=== PATIENT | male | born 1995 | race Caucasian/White ===

== ENCOUNTER 2020-05-20 12:10 | Outpatient (CLI) | payer BC, SELFPAY ==
[2020-05-20 13:37] LABS: SARS-CoV-2 Ag Negative (Negative)
== END 2020-05-20 12:11 | disposition home or self-care (01) ==
PROVIDERS: PCP Internal Medicine; Visit Provider Internal Medicine
DX: R50.9 Fever, unspecified (principal); Z20.828 Contact with and (suspected) exposure to other viral communicable diseases
CPT/HCPCS: 87426

== ENCOUNTER 2020-07-13 10:30 | Emergency (ER) | payer BC, OTHER, SELFPAY ==
[2020-07-13 10:35] VITALS: BP 132/80; PULSE 88; RESP 16; TEMP 36.8; O2SAT 100
--- NOTE | 2020-07-13 10:55 | ED.URI ---
HPI - URI/Sore Throat General Chief Complaint: Upper Respiratory Infection Stated Complaint: throat pain Source: patient Mode of arrival: ambulatory Limitations: no limitations History of Present Illness HPI Narrative: This is a 25-year-old gentleman presents with sore throat with a tender submandibular glands with no fevers symptoms have been going on for approximately 2 weeks and progressively worsened over the last 1 to 2 days. Patient denies any fever or chills but has a sore throat pain with swallowing with no shortness of breath no nausea vomiting no abdominal pain. Patient does have some sinus congestion with no ear pressure no frontal sinus pressure. MD elicited complaint: sore throat and nasal congestion Onset (ago): day(s) Consistency: constant Severity: moderate Exacerbating factors: swallowing Associated symptoms: voice changes, nasal congestion and sore throat Related Data Allergies Allergy/AdvReac Type Severity Reaction Status Date / Time No Known Allergies Allergy Unverified 06/07/17 22:20 Review of Systems Review of Systems: All systems reviewed & are unremarkable except as noted in HPI and below PMFSH Past Medical History Medical History Patient denies medical problems Exam Const: General: no acute distress and alert Orientation/consciousness: patient oriented x3 HENMT: Head: normal to inspection Other: bilateral tonsillar enlargement and erythema with bilateral submandibular gland inflammation and tenderness with palpation Eyes: Conjunctivae: conjunctivae normal Pupils: Equal, round and reactive pupils present Neck: Neck: normal visual inspection Chest: Chest palpation & inspection: normal inspection of the chest Resp: Effort & Inspection: normal respiratory effort Cardio: Rate: regular rate Rhythm: regular rhythm GI: GI Palp: Yes Soft to palpation Back/Spine/Pelvis: Back: no CVA tenderness Skin: General skin exam: normal color Rashes: no rashes Extrem: General: normal to inspection and no pedal edema Psych: Mental Status: mental status grossly normal Course Course Emergency Course: patient with sore throat patient has negative strep, and will send in an antibiotic to patient's pharmacy MDM - URI/Sore Throat Lab Data Labs: Lab Results 07/13/20 Range/Units 10:43 Grp A Beta Strep Ag Pending Critical Care Time Critical Care Time Critical Care Time: No Discharge Plan Discharge Clinical Impression: Pharyngitis Qualifiers: Pharyngitis/tonsillitis etiology: other specified organisms Qualified Code(s): J02.8 - Acute pharyngitis due to other specified organisms Patient Disposition: Home, Self-Care Condition: Stable Instructions: Antibiotic Form, Pharyngitis (ED) Additional Instructions: take medicine as prescribed, can use Tylenol or Motrin for sore throat with a warm saltwater gargle, and follow-up with primary care physician if symptoms persist or worsen. Prescriptions: New amoxicillin-pot clavulanate [Augmentin] 875-125 mg tablet 1 tablet PO Q12H Qty: 20 RF: 0 Follow-up/Referrals: Severino Barkley MD [Primary Care Provider] - Time of Disposition: 11:09
[2020-07-13 11:15] VITALS: RESP 20
== END 2020-07-13 11:15 | disposition home or self-care (01) ==
PROVIDERS: Emergency Provider Emergency Medicine; PCP Internal Medicine
DX: J02.8 Acute pharyngitis due to other specified organisms (principal)
CPT/HCPCS: 87081; 87880; 99283

== ENCOUNTER 2021-03-27 00:45 | Emergency (ER) | payer BC, OTHER, SELFPAY ==
--- NOTE | ~2021-03-27 | CT_ITS ---
EXAMINATION: CT soft tissue neck w con DATE: 03/27/2021 02:18 INDICATION: Peritonsillar abscess. TECHNIQUE: Computed tomography (CT) of the neck was performed with 75 mL Omnipaque-350 intravenous co ntrast. Automated exposure control and iterative reconstruction technique were employed. The dose-bandar gth product was 481.34 mGy-cm. COMPARISON: None FINDINGS: The adenoids and palatine tonsils are enlarged. There are no pathologically enlarged lymph nodes. There is an aberrant right subclavian artery. The cervical carotid arteries are normal. The pa ranasal sinuses are clear. The mastoid air cells are normal. There is mild cervical spondylosis. IMPRESSION: 1. Enlarged adenoids and palatine tonsils, consistent with inflammation. No abscess. Reviewed, dictated and finalized at location A. IMPRESSION: 1. Enlarged adenoids and palatine tonsils, consistent with inflammation. No abs cess.
[2021-03-27 00:45] VITALS: BP 133/86; PULSE 75; RESP 20; TEMP 37.2; O2SAT 99
--- NOTE | 2021-03-27 00:58 | ED.GENADULT ---
HPI - General Adult General Chief complaint: Upper Respiratory Infection Stated complaint: throut Source: patient Mode of arrival: ambulatory Limitations: no limitations History of Present Illness HPI narrative: Ta is a 25M with a PMH of tonsilitis and tobacco abuse that presented to the ED with a worsening sore throat for 3-4 days. It hurts when he swallows and he has tender lymph nodes. He denies any fevers, chills, N/V, CP or headache. Related Data Allergies Allergy/AdvReac Type Severity Reaction Status Date / Time No Known Allergies Allergy Unverified 06/07/17 22:20 Review of Systems Constitutional: Constitutional: Reports no additional constitutional complaints Eyes: Eyes: Reports no additional eye complaints ENT: Reports as per HPI Cardiovascular: Cardiovascular: Reports no additional cardiovascular complaints Respiratory: Respiratory: Reports no additional respiratory complaints Gastrointestinal: Gastrointestinal: Reports no additional gastrointestinal complaints Genitourinary: Genitourinary: Reports no additional male genitourinary complaints Musculoskeletal: Musculoskeletal: Reports no additional musculoskeletal complaints Integumentary/Breasts: Skin/Breast: Reports system reviewed and no additional complaints, except as docu Neurologic: Reports system reviewed and no additional complaints, except as documented Psychiatric: Psychiatric: Reports no additional psychiatric complaints Endocrine: Endocrine: Reports no additional endocrine complaints Hematologic/Lymphatic: Hematologic/Lymphatic: Reports no additional hematologic/lymphatic complaints Allergic/Immunologic: Allergic/Immunologic: Reports no additional allergic/immunologic complaints [facility] Past Medical History Medical History Patient denies medical problems Exam Const: General: no acute distress and alert Orientation/consciousness: patient oriented x3 Limitations: No altered mental status HENMT: Head: normal to inspection Other: Enlarged tonsils with the left being worse than the right Eyes: Conjunctivae: conjunctivae normal Pupils: Equal, round and reactive pupils present Neck: Other: Sub mandibular lymphadenopathy on the left Chest: Chest palpation & inspection: normal inspection of the chest Resp: Effort & Inspection: normal respiratory effort Auscultation: clear to auscultation bilaterally Cardio: Rate: regular rate Rhythm: regular rhythm GI: Inspection: non-distended GI Palp: Yes Soft to palpation, No Tenderness to palpation present (GI) and No Guarding due to palpation present (GI) Skin: General skin exam: normal color Rashes: no rashes Neuro: General: patient oriented x3 and moves all extremities Extrem: General: normal to inspection Psych: Appearance: grossly normal Mental Status: mental status grossly normal Course Course Emergency Course: Given Augmentin first dose in the ED CT showed enlarged bilateral tonsils consistent with tonsillitis. No definite abscess identified. He was discharged to follow up with his PCP. Vital Signs Vital signs: Vital Signs Temperature 98.9 F 03/27/21 00:45 Pulse Rate 75 03/27/21 00:45 Respiratory Rate 20 03/27/21 00:45 Blood Pressure 133/86 03/27/21 00:45 Pulse Oximetry 99 03/27/21 00:45 Temperature 97.8 F 03/27/21 02:47 Pulse Rate 78 03/27/21 02:47 Respiratory Rate 20 03/27/21 02:47 Blood Pressure 148/84 H 03/27/21 02:47 Pulse Oximetry 99 03/27/21 02:47 Medical Decision Making Vital Signs Vital Signs: Vital Signs Temperature 98.9 F 03/27/21 00:45 Pulse Rate 75 03/27/21 00:45 Respiratory Rate 20 03/27/21 00:45 Blood Pressure 133/86 03/27/21 00:45 Pulse Oximetry 99 03/27/21 00:45 Temperature 97.8 F 03/27/21 02:47 Pulse Rate 78 03/27/21 02:47 Respiratory Rate 20 03/27/21 02:47 Blood Pressure 148/84 H 03/27/21 02:47 Pulse Oximetry 9
[2021-03-27] MEDS: AMOXICILLIN/CLAVULANATE K 875-125 MG TAB 1 TABLET PO (01:00)
[2021-03-27 01:10] VITALS: BP 133/86; PULSE 75; RESP 20; TEMP 37.2; O2SAT 99
--- NOTE | 2021-03-27 01:24 | PC.NURSE ---
after discharge discussion with dr daugherty and pt. dr daugherty decided to ct throat for abscess.
[2021-03-27 01:29] LABS: Basophils Percent Auto 0.9 % (0.0-1.0); Eosinophils Absolute Auto 0.24 K/mm3 (0.02-0.50); Eosinophils Percent Auto 2.1 % (1.0-6.0); Hematocrit 48.4 % (40.0-54.0); Hemoglobin 16.6 g/dL (14.0-18.0); Immature Granulocyte Absolute 0.07 K/mm3 (0.00-0.00); Immature Granulocyte Percent A 0.6 % (0.0-0.0); Lymphocytes Absolute Auto 3.39 K/mm3 (1.10-4.50); Lymphocytes Percent Auto 30.3 % (18.0-42.0); Mean Corpuscular HGB Conc 34.3 g/dL (32.0-36.0); Mean Corpuscular Hemoglobin 29.7 pg (27.0-31.0); Mean Corpuscular Volume 86.6 fL (78.0-102.0); Mean Platelet Volume 10.2 fl (8.7-11.0); Monocytes Percent Auto 8.1 % (2.0-11.0); Neutrophils Absolute Auto 6.5 K/mm3 (1.7-7.2); Platelet Count Result 266 K/mm3 (150-420); Red Blood Count 5.59 M/mm3 (4.70-6.10); Red Cell Distribution Width 12.3 % (11.6-14.4); White Blood Count 11.2 K/mm3 (4.8-10.8)
[2021-03-27 01:43] LABS: Alanine Aminotransferase 36 U/L (16-63); Albumin Level 4.6 g/dL (3.4-5.0); Alkaline Phosphatase 85 U/L (46-116); Anion Gap 9 mmol/L (8-16); Aspartate Amino Transferase 19 U/L (15-37); Bilirubin,Total 0.5 mg/dL (0.00-1.00); Blood Urea Nitrogen 15 mg/dL (7-18); Calcium 9.1 mg/dL (8.5-10.1); Carbon Dioxide 29 mmol/L (21-32); Chloride 103 mmol/L (98-108); Estimated CRCL calculation 119 ml/min; Estimated Glomerular Filt Rate > 60; Glucose 86 mg/dL (70-99); Osmolality Calculated 291 mOsm/kg (285-295); Potassium 3.8 mmol/L (3.5-5.1); Sodium 141 mmol/L (136-145); Total Protein 7.8 g/dL (6.4-8.2)
[2021-03-27 02:47] VITALS: BP 148/84; PULSE 78; RESP 20; TEMP 36.6; O2SAT 99
== END 2021-03-27 02:48 | disposition home or self-care (01) ==
PROVIDERS: Emergency Provider Family Medicine; PCP Internal Medicine
DX: J03.90 Acute tonsillitis, unspecified (principal)
CPT/HCPCS: 36415; 70491; 80053; 85025; 99283; 99284; A9270; Q9967

== ENCOUNTER 2021-05-07 15:37 | Outpatient (CLI) | payer BC, OTHER, SELFPAY ==
[2021-05-07 16:45] LABS: SARS-CoV-2 RNA PCR Positive (Negative)
== END 2021-05-07 15:38 | disposition home or self-care (01) ==
LOC: CHSLAB 15:43
PROVIDERS: PCP Internal Medicine; Visit Provider Internal Medicine
DX: U07.1 COVID-19 (principal)
CPT/HCPCS: C9803; U0003; U0005

== ENCOUNTER 2022-10-10 08:21 | Emergency (ER) | payer OTHER, SELFPAY ==
[2022-10-10 08:33] VITALS: BP 133/82; PULSE 82; RESP 16; TEMP 36.8; O2SAT 100
--- NOTE | 2022-10-10 08:36 | ED.URI ---
HPI - URI/Sore Throat General Chief Complaint: Upper Respiratory Infection Stated Complaint: SWOLLEN UVULA/SORE THROAT Time Seen by Provider: 10/10/22 08:36 Source: patient, RN notes reviewed and old records reviewed Mode of arrival: ambulatory Limitations: no limitations History of Present Illness HPI Narrative: 27 year old male who presents to [facility] with complaints of swelling of uvula and sore throat pain which started yesterday as scratchy throat. Patient reports that uvula red and swollen this morning and throat is sore especially when swallowing. Patient reports that he has not had any fevers, chills or sweats or body aches. Patient states that he has been using salt water gargles without improvementaute cough..Patient reports that he did expectorate some yellow phlegm this morning but denies acute cough. MD elicited complaint: sore throat and other (swollen uvula) Onset (ago): day(s) (day 2 of symptoms) Pain scale (0-10): 6 Able to tolerate fluids by mouth: Yes Exacerbating factors: swallowing Treatments prior to arrival: other (salt water gargles) Related Data Allergies Allergy/AdvReac Type Severity Reaction Status Date / Time No Known Allergies Allergy Verified 10/10/22 08:28 Review of Systems Review of Systems: CONSTITUTIONAL: Denies malaise, chills, sweats, or fever. EYES: Denies visual changes, redness, or discharge. ENT: Reports rhinorrhea, congestion, no sinus pain,no otalgia positive for sore throat and swollen uvula CARDIOVASCULAR: Denies chest pain, palpitations, or edema. RESPIRATORY: Reports no cough.? Denies dyspnea. GASTROINTESTINAL: Denies abdominal pain, nausea, vomiting, diarrhea SKIN: Denies rash or itching. MUSCULOSKELETAL: Denies myalgia. NEUROLOGIC: Denies headache. All systems reviewed & are unremarkable except as noted in HPI and below PMFSH Past Medical History Medical History (Updated 10/11/22 @ 18:50 by Lizzeth Townsend NP) Patient denies medical problems Surgical History Surgical History (Updated 10/11/22 @ 18:46 by Lizzeth Townsend NP) H/O arthroscopy of right knee History of appendectomy Social History Social History (Updated 10/11/22 @ 18:45 by Lizzeth L. 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 There is no relevant family history pertinent to the presenting complaint Exam Narrative: GENERAL: Well-appearing, well-nourished, and in no acute distress. HEAD: Normocephalic EYES: PERRLA, conjunctivae clear ENT: Nares clear, turbinates edematous and erythematous, clear discharge. Mucous membranes moist. TM pearly melgar with dull light reflex bilaterally; no tragal tenderness. Oropharynx erythematous without lesions. Tonsils enlarged and without exudate, no drooling, no hoarseness, no trismus, uvula red and swollen and painful swallowing. NECK: Supple. lymphadenopathy CHEST: Clear to auscultation, breath sounds equal. No wheezing, rhonchi, rales, or stridor. No respiratory distress, speaks in full sentences. HEART: Regular rate and rhythm. No murmur heard. SKIN: Warm, dry, no rash. NEURO: Alert and oriented x3. PSYCH: Normal mood and affect Course Course Emergency Course: Patient is aware of diagnosis, understands and agrees to treatment plan.? Anticipatory guidance given.? Patient agrees to follow-up as directed and is aware of reasons to seek care at the emergency department. Portions of this record may have been created with voice recognition software Level of Care: Express Care Visit Vital Signs Vital signs: Vital Signs Temperature 36.8 C 10/10/22 08:33 Pulse Rate 82 10/10/22 08:33 Respiratory Ra
== END 2022-10-10 08:53 | disposition home or self-care (01) ==
PROVIDERS: Emergency Provider Registered Nurse; PCP Internal Medicine
DX: K12.2 Cellulitis and abscess of mouth (principal); J02.9 Acute pharyngitis, unspecified; F17.210 Nicotine dependence, cigarettes, uncomplicated
CPT/HCPCS: 87081; 87880; 99213; G0463

== ENCOUNTER 2023-09-28 09:38 | Emergency (ER) | payer OTHER, SELFPAY ==
--- NOTE | ~2023-09-28 | CT_ITS ---
EXAMINATION: CT abdomen pelvis wo con DATE: 09/28/2023 10:01 INDICATION: Left flank pain. Nausea. TECHNIQUE: Computed tomography (CT) of the abdomen and pelvis was performed without intravenous contr ast. Automated exposure control and iterative reconstruction technique were employed. The dose-length product was 570.72 mGy-cm. COMPARISON: CT abdomen and pelvis 12/25/2015 FINDINGS: The visualized portions of the lung bases are clear without pneumonia or pleural effusion. The heart size is normal. No pericardial effusion. The liver, gallbladder, spleen, pancreas, adrenal glands, and right kidney are normal. There is mild left hydronephrosis and hydroureter. There is a 2 mm stone at left ureterovesicular junction. There are changes of appendectomy. There are no dilated l oops of bowel. There are no pathologically enlarged lymph nodes. There is no free intraperitoneal flu id. The bones are unremarkable. IMPRESSION: 1. 2 mm stone at left ureterovesicular junction with mild left hydronephrosis and hydroureter. Reviewed, dictated and finalized at location E. IMPRESSION: 1. 2 mm stone at left ureterovesicular junction with mild left hydronephrosis a nd hydroureter.
[2023-09-28 09:38] VITALS: BP 155/100; PULSE 60; RESP 16; TEMP 35.9; O2SAT 100
--- NOTE | 2023-09-28 09:44 | ED.ABDPAIN ---
HPI - Abdominal Pain General Chief Complaint: Abdominal Pain Stated Complaint: left side pain Time Seen by Provider: 09/28/23 09:43 Source: patient Mode of arrival: ambulatory Limitations: no limitations History of Present Illness HPI narrative: Patient is a 28-year-old male with left flank pain that started from sleep this morning. MD elicited complaint: flank pain ( Left) Pertinent past history: none Onset (ago): hour(s) (3) Pain Consistency: constant Location: L flank Severity: moderate Pain scale (0-10): 5 Quality: sharp Radiation: none Migration to: no migration Exacerbating factors: nothing Relieving factors: nothing Associated symptoms: nausea and vomiting Related Data Allergies Allergy/AdvReac Type Severity Reaction Status Date / Time No Known Allergies Allergy Verified 09/28/23 09:53 Review of Systems Review of Systems: All systems reviewed & are unremarkable except as noted in HPI and below Constitutional: Constitutional: Reports no additional constitutional complaints Eyes: Eyes: Reports no additional eye complaints ENT: Reports system reviewed and no additional complaints, except as documented Cardiovascular: Cardiovascular: Reports no additional cardiovascular complaints Respiratory: Respiratory: Reports no additional respiratory complaints Gastrointestinal: Gastrointestinal: Reports no additional gastrointestinal complaints Genitourinary: Genitourinary: Reports no additional male genitourinary complaints Musculoskeletal: Musculoskeletal: Reports no additional musculoskeletal complaints Integumentary/Breasts: Skin/Breast: Reports system reviewed and no additional complaints, except as docu Neurologic: Reports system reviewed and no additional complaints, except as documented Psychiatric: Psychiatric: Reports no additional psychiatric complaints Endocrine: Endocrine: Reports no additional endocrine complaints Hematologic/Lymphatic: Hematologic/Lymphatic: Reports no additional hematologic/lymphatic complaints Allergic/Immunologic: Allergic/Immunologic: Reports no additional allergic/immunologic complaints [facility] Past Medical History Medical History Patient denies medical problems Surgical History Surgical History H/O arthroscopy of right knee History of appendectomy Social History Social History Smoking packs per day: 0.5 Smoking cigarettes per day: 10.0 Smoking status: Current every day smoker Alcohol intake: current Alcohol use details: social Substance use type: does not use Gender identity (if verbalized by the patient): Male Exam Const: General: cooperative, healthy appearing and comfortable HENMT: Head: normal to inspection Eyes: General: appearance normal, both eyes and all related structures Visual Akhtar: normal visual akhtar by confrontation Alignment and Position: alignment normal Neck: Neck: normal visual inspection, full ROM and no lymphadenopathy Chest: Chest palpation & inspection: normal inspection of the chest, normal palpation of entire chest wall and no localized rib tenderness Resp: Effort & Inspection: normal respiratory effort and able to speak in complete sentences Auscultation: clear to auscultation bilaterally, no bronchial breath sounds, bronchovesicular breath sounds and no egophony Cardio: Jugular venous distension: no JVD Palpation: normal PMI Rate: regular rate Rhythm: regular rhythm Heart sounds: S1 normal heart sound present and S2 normal heart sound present GI: Inspection: normal to inspection Auscultation: normal bowel sounds, bowels sounds normal and normoactive bowel sounds Back/Spine/Pelvis: Back: no CVA tenderness, No CVA tenderness, No mass and No erythema Skin: General skin exam: normal color, no rashes or lesions noted and elasticity normal Neuro:
[2023-09-28 09:54] LABS: Appearance Urine Clear (Clear); Bilirubin Urine Negative (Negative); Blood Urine Trace-intact (Negative); Color Urine Yellow (Yellow); Glucose Urine UA Negative (Negative); Ketones Urine Negative (Negative); Leukocyte Esterase Ur Negative LEU/UL (Negative); Nitrate Urine Negative (Negative); Protein Urine Negative (Negative); Specific Grav Ur >= 1.030 (1.010-1.020); Urobilinogen Urine 0.2 mg/dL (0.2-1.0)
[2023-09-28] MEDS: ONDANSETRON HCL ODT 4 MG TABLET PO (10:06)
[2023-09-28 10:10] VITALS: BP 153/105; PULSE 58; RESP 20; O2SAT 100
[2023-09-28 10:12] LABS: Add Urine Microscopic? YES; Bacteria Urine None seen /hpf; RBC Urine None seen /hpf (0-2); WBC Urine None seen /hpf (0-3)
[2023-09-28 10:13] LABS: Basophils Absolute Auto 0.06 K/mm3 (0.00-0.10); Basophils Percent Auto 0.8 % (0.0-1.0); Eosinophils Absolute Auto 0.11 K/mm3 (0.02-0.50); Eosinophils Percent Auto 1.4 % (1.0-6.0); Hematocrit 49.8 % (40.0-54.0); Hemoglobin 16.6 g/dL (14.0-18.0); Immature Granulocyte Absolute 0.05 K/mm3 (0.00-0.00); Immature Granulocyte Percent A 0.6 % (0.0-0.0); Lymphocytes Absolute Auto 2.87 K/mm3 (1.10-4.50); Lymphocytes Percent Auto 37.2 % (18.0-42.0); Mean Corpuscular HGB Conc 33.3 g/dL (32-36); Mean Corpuscular Hemoglobin 28.9 pg (27.0-31.0); Mean Corpuscular Volume 86.6 fL (78.0-102.0); Mean Platelet Volume 10.1 fl (8.7-11.0); Monocytes Absolute Auto 0.56 K/mm3 (0.10-0.90); Monocytes Percent Auto 7.3 % (2.0-11.0); Neutrophils Absolute Auto 4.07 K/mm3 (1.70-7.20); Neutrophils Percent Auto 52.7 % (50.0-70.0); Platelet Count Result 217 K/mm3 (150-420); Red Blood Count 5.75 M/mm3 (4.70-6.10); Red Cell Distribution Width 12.5 % (11.6-14.4); White Blood Count 7.7 K/mm3 (4.8-10.8)
[2023-09-28] MEDS: methylPREDNISolone 4 MG TABLET PO (10:32)
[2023-09-28] MEDS: TAMSULOSIN HCL 0.4 MG CAPSULE PO (10:32)
[2023-09-28] MEDS: KETOROLAC (*BKC) 60 MG/2 ML VIAL IM (10:32)
[2023-09-28 10:34] LABS: Lactic Acid Reflex 1.7 mmol/L (0.4-2.0)
[2023-09-28 10:41] LABS: Alanine Aminotransferase 49 U/L (16-63); Albumin Level 4.2 g/dL (3.4-5.0); Alkaline Phosphatase 67 U/L (46-116); Anion Gap 11 mmol/L (4-12); Aspartate Amino Transferase 22 U/L (15-37); Bilirubin,Total 0.4 mg/dL (0.00-1.00); Blood Urea Nitrogen 14 mg/dL (7-18); Calcium 9.1 mg/dL (8.5-10.1); Carbon Dioxide 28 mmol/L (21-32); Chloride 104 mmol/L (98-108); Estimated CRCL calculation 100 ml/min; Estimated Glomerular Filt Rate > 60; Glucose 119 mg/dL (70-99); Lipase 45 U/L (16-77); Osmolality Calculated 297 mOsm/kg (285-295); Sodium 143 mmol/L (136-145); Total Protein 7.5 g/dL (6.4-8.2)
== END 2023-09-28 10:51 | disposition home or self-care (01) ==
PROVIDERS: Emergency Provider Emergency Medicine; PCP Internal Medicine
DX: N13.2 Hydronephrosis with renal and ureteral calculous obstruction (principal); F17.210 Nicotine dependence, cigarettes, uncomplicated
CPT/HCPCS: 36415; 74176; 80053; 81001; 83605; 83690; 85025; 96372; 99284; A9270; J1885

== ENCOUNTER 2024-10-20 10:40 | Outpatient (CLI) | payer OTHER, SELFPAY ==
--- OUTSIDE RECORDS SUMMARY | 2024-10-20 10:45 | XMS_ITS | Clinical Summary ---
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 Gender Identity Not on file Sexual Orientation Not on file Plan of Treatment Health Maintenance Due Date Last Done Comments Annual Physical 1999 Hepatitis C 2014 DTaP, Tdap and Td Vaccines ( 1 - Tdap) 2015 Hepatitis B Vaccines (1 of 3 - 19+ 3-dose series) 2015 COVID-19 Vaccine (2023-2 5 season) 2024 HPV Vaccines Aged Out No longer eligi ble based on patient's age to complete this topic Meningococcal B Vaccine Aged Out No l onger eligible based on patient's age to complete this topic Meningococcal Vaccine Aged Out No gage thong eligible based on patient's age to complete this topic Pneumococcal Vaccine: Pediat rics (0 to 5 Years) and At-Risk Patients (6 to 49 Years) Aged Out No longer eligible b ased on patient's age to complete this topic RSV Immunizations Under 20 Months Aged Out No longer eligible based on patient's age to complete this topic
--- OUTSIDE RECORDS SUMMARY | 2024-10-20 10:45 | XMS_ITS | Encounter Summary ---
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
[2024-10-20 11:08] LABS: Add Urine Microscopic? NO; Appearance Urine Clear (Clear); Bilirubin Urine Negative (Negative); Blood Urine Negative (Negative); Color Urine Yellow (Yellow); Glucose Urine UA Negative (Negative); Ketones Urine Negative (Negative); Leukocyte Esterase Ur Negative (Negative); Nitrate Urine Negative (Negative); Protein Urine Negative (Negative); Urobilinogen Urine 0.2 mg/dL (0.2-1.0)
[2024-10-20 11:11] LABS: Hematocrit 47.9 % (40.0-54.0); Hemoglobin 16.4 g/dL (14.0-18.0); Mean Corpuscular HGB Conc 34.2 g/dL (32-36); Mean Corpuscular Hemoglobin 29.2 pg (27.0-31.0); Mean Corpuscular Volume 85.4 fL (78.0-102.0); Mean Platelet Volume 10.2 fl (8.7-11.0); Platelet Count Result 227 K/mm3 (150-420); Red Blood Count 5.61 M/mm3 (4.70-6.10); Red Cell Distribution Width 12.3 % (11.6-14.4); White Blood Count 6.9 K/mm3 (4.8-10.8)
[2024-10-20 11:18] LABS: Creatinine Urine 240.74 mg/dL (40-278); MALB Creatinine Ratio 5.4 mg/g (0-30); Microalbumin Urine Random 13.2 mg/L
[2024-10-20 11:24] LABS: Band Neutrophils Percent 0 % (0-6); Eosinophils Absolute Manual 0.13 K/mm3 (0.02-0.50); Eosinophils Percent Manual 2 % (1-6); Lymphocytes Absolute Manual 3.51 K/mm3 (1.1-4.5); Lymphocytes Percent Manual 51 % (18-44); Monocytes Absolute Manual 0.69 K/mm3 (0.1-0.90); Monocytes Percent Manual 10 % (3-9); Neutrophils Absolute Manual 2.55 K/mm3 (1.3-6.7); Neutrophils Percent Manual 37 % (46-73); Platelet Estimate Adequate (Adequate); Total Cells Counted 100
[2024-10-20 11:39] LABS: Alanine Aminotransferase 127 U/L (16-63); Albumin Level 4.5 g/dL (3.4-5.0); Alkaline Phosphatase 71 U/L (46-116); Anion Gap 6 mmol/L (4-12); Aspartate Amino Transferase 42 U/L (15-37); Bilirubin,Total 0.5 mg/dL (0.00-1.00); Blood Urea Nitrogen 11 mg/dL (7-18); Calcium 9.5 mg/dL (8.5-10.1); Carbon Dioxide 29 mmol/L (21-32); Chloride 106 mmol/L (98-108); Cholesterol 155 mg/dL (0-200); Estimated Glomerular Filt Rate > 60; Glucose 99 mg/dL (70-99); HDL Direct 25 mg/dL (40-60); LDL Cholesterol Calculated 91 mg/dL (<130); Osmolality Calculated 291 mOsm/kg (285-295); Potassium 4.7 mmol/L (3.5-5.1); Sodium 141 mmol/L (136-145); Total Protein 7.3 g/dL (6.4-8.2); Triglycerides 197 mg/dL (0-150)
[2024-10-20 11:41] LABS: Thyroid Stimulating Hormone Reflex 1.07 u/IU/mL (0.36-3.74)
[2024-10-25 02:03] LABS: Hepatitis A Antibody IgM NON-REACTIVE (NON-REACTIVE); Hepatitis B Core Antibody NON-REACTIVE (NON-REACTIVE)
[2024-10-25 02:23] LABS: Hepatitis B Surface Antigen NON-REACTIVE (NON-REACTIVE)
[2024-10-25 02:44] LABS: Hepatitis C Virus Antibody NON-REACTIVE (NON-REACTIVE)
== END 2024-10-20 10:41 | disposition home or self-care (01) ==
LOC: CHSLAB 10:41
PROVIDERS: PCP Family Medicine; Visit Provider Family Medicine
DX: E03.9 Hypothyroidism, unspecified (principal); I10 Essential (primary) hypertension; R82.998 Other abnormal findings in urine
CPT/HCPCS: 36415; 80053; 80061; 80074; 81003; 82043; 84443; 85025

== ENCOUNTER 2024-11-06 07:12 | Outpatient (CLI) | payer OTHER, SELFPAY ==
--- NOTE | ~2024-11-06 | US_ITS ---
Limited Abdominal Sonogram: Real-time sonographic imaging of the right upper quadrant was performed. Clinical History: Abnormal liver enzyme levels Findings: The liver appears echogenic, with no evidence of mass lesion or bile duct dilatation. Main portal vein demonstrates normal direction of flow. The gallbladder is well distended, and appears no rmal with no evidence of gallstone or wall thickening. The common bile duct measures 3 mm. The visua lized pancreas, aorta, and IVC are unremarkable. Impression: Diffuse fatty infiltration of liver. Reviewed, dictated and finalized at location M. Impression: Diffuse fatty infiltration of liver.
--- OUTSIDE RECORDS SUMMARY | 2024-11-06 07:16 | XMS_ITS | Encounter Summary ---
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
--- OUTSIDE RECORDS SUMMARY | 2024-11-06 07:16 | XMS_ITS | Clinical Summary ---
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
== END 2024-11-06 07:13 | disposition home or self-care (01) ==
LOC: CHSIMG 07:13
PROVIDERS: PCP Family Medicine; Visit Provider Family Medicine
DX: R74.01 Elevation of levels of liver transaminase levels (principal); K76.0 Fatty (change of) liver, not elsewhere classified
CPT/HCPCS: 76705

== ENCOUNTER 2025-02-27 16:19 | Emergency (ER) | payer OTHER, SELFPAY ==
[2025-02-27 16:19] VITALS: BP 135/81; PULSE 112; RESP 16; TEMP 37.5; O2SAT 99
--- NOTE | 2025-02-27 16:36 | ED_ITS ---
HPI - General Adult General Chief complaint: Skin/Abscess/Foreign Body Stated complaint: rash Time Seen by Provider: 02/27/25 16:36 Source: patient Mode of arrival: ambulatory Limitations: no limitations History of Present Illness HPI narrative: PATIENT WAS FISHING 2 DAYS AGO, STANDING ON A GRASS QUITE A BIT OF PUSHES ALL OVER THE PLACE, YESTERDAY STARTED HAVING ITCHING RASH LOWER EXTREMITY GOING UP TO THE LOWER ABDOMEN. HE DENIES DIFFICULTY SWALLOWING OR BREATHING. PATIENT IS HEALTHY OTHERWISE. Related Data Home Medications ?Medication ?Instructions ?Recorded ?Confirmed ?Last Taken ?Type naproxen sodium 220 mg capsule 220 mg PO BID PRN 10/2010/20/24 Unknown History (Aleve) Allergies Allergy/AdvReac Type Severity Reaction Status Date / Time No Known Allergies Allergy Verified 02/27/25 16:20 Review of Systems Review of Systems: All systems reviewed & are unremarkable except as noted in HPI and below PMFSH Past Medical History Medical History Patient denies medical problems Surgical History Surgical History H/O arthroscopy of right knee History of appendectomy Social History Social History Smoking packs per day: 0.5 Smoking cigarettes per day: 10.0 Smoking status: Current every day smoker Alcohol intake: former Alcohol use details: social Substance use type: does not use Do You Feel Safe in your Home?: Yes Lack of Transportation: No Lack of Food: Never True Current Housing: I Have Housing Concerned About Future Housing: No Difficulty Paying Gas/Electric Bills: No Difficulty Paying for Meds: No Currently Unemployed: No Education: Trade/Vocational Certificate Difficulty w/ Childcare or Family Care: No Living arrangements: with family Occupation/Education: occupation Gender identity (if verbalized by the patient): Male Exam Narrative: GENERAL APPEARANCE: WELL-DEVELOPED, WELL-NOURISHED SKIN: RED PIMPLES, BLISTERS MAINLY ON THE LOWER LEGS BILATERALLY AROUND THE ANKLES, SCATTERED ON THE THIGH AND LOWER ABDOMEN BILATERALLY. NO DISCHARGER HEAD: NORMOCEPHALIC, NONTRAUMATIC EYES: CLEAR CONJUNCTIVA ENT: OROPHARYNX NORMAL, EARS NORMAL, NOSE NORMAL VASCULAR: NORMAL PERIPHERAL PULSES, NORMAL CAPILLARY REFILL. MUSCULOSKELETAL: NORMAL RANGE OF MOTION, NONTENDER BACK NEUROLOGIC: ALERT AND ORIENTED ?3, WOMEN'S STUDIES LECTURER IS NORMAL TESTED, NO GROSS MOTOR DEFICIT Course Vital Signs Vital signs: Vital Signs Temperature 37.5 C 02/27/25 16:19 Pulse Rate 112 H 02/27/25 16:19 Respiratory Rate 16 02/27/25 16:19 Blood Pressure 135/81 02/27/25 16:19 Pulse Oximetry 99 02/27/25 16:19 Oxygen Delivery Room Air 02/27/25 16:19 Temperature 37.5 C 02/27/25 16:19 Pulse Rate 112 H 02/27/25 16:19 Respiratory Rate 16 02/27/25 16:19 Blood Pressure 135/81 02/27/25 16:19 Pulse Oximetry 99 02/27/25 16:19 Oxygen Delivery Room Air 02/27/25 16:19 Medical Decision Making MDM Narrative Medical decision making narrative: DIFFERENTIAL DIAGNOSIS INSECT BITES, CHIGGERS IS MY CONCERN Vital Signs Vital Signs: Vital Signs Temperature 37.5 C 02/27/25 16:19 Pulse Rate 112 H 02/27/25 16:19 Respiratory Rate 16 02/27/25 16:19 Blood Pressure 135/81 02/27/25 16:19 Pulse Oximetry 99 02/27/25 16:19 Oxygen Delivery Room Air 02/27/25 16:19 Temperature 37.5 C 02/27/25 16:19 Pulse Rate 112 H 02/27/25 16:19 Respiratory Rate 16 02/27/25 16:19 Blood Pressure 135/81 02/27/25 16:19 Pulse Oximetry 99 02/27/25 16:19 Oxygen Delivery Room Air 02/27/25 16:19 Critical Care Time Critical Care Time Critical Care Time: No Discharge Plan Discharge Clinical Impression: Bites, chigger Patient Disposition: Home Condition: Stable Instructions: Chigger Bite (ED) Additional Instructions: RETURN IF SYMPTOMS ARE WORSENING , CALL YOUR FAMILY PHYSICIAN FOR APPOINTMENT, TAKE TYLENOL NEEDED FOR ACHES AND PAIN, CONTINUE HOME MEDICATIONS. SHOWER AND SCRUBBED: TAKE HOT SHOWERS AND USE WASHCLOTH TO SCRUB YOUR SKIN TO DISLODGE ANY STILL ATTACHED CHIGGERS WASHCLOTH IN HOT, SOAPY WATER TO KILL ANY CHIGGERS THAT MAY HAVE HITCHED A RIDE COOL COMPRESSES [id number] CALAMINE LOTION OR CREAM CONTAINING HYDROCORTISONE DO NOT SCRATCH Patient Language: Danish Prescriptions: New prednisone 20 mg tablet 40 mg PO DAILY 5 Days Qty: 10 0RF cetirizine [Zyrtec] 10 mg tablet 10 mg PO BID PRN (Reason: allergy symptoms) Qty: 30 0RF No Action naproxen sodium [Aleve] 220 mg capsule 220 mg PO BID PRN telmisartan-hydrochlorothiazid 40-12.5 mg tablet See Rx Instructions .ROUTE .COMPLEX Qty: 90 1RF Dose Instruction: TAKE 1 TABLET BY MOUTH EVERY DAY Rx Instructions: TAKE 1 TABLET BY MOUTH EVERY DAY bupropion HCl (smoking deter) 150 mg tablet extended release 12 hr See Rx Instructions .ROUTE .COMPLEX Qty: 60 2RF Dose Instruction: TAKE 1 TABLET BY MOUTH TWICE A DAY Rx Instructions: TAKE 1 TABLET BY MOUTH TWICE A DAY Follow-up/Referrals: Sharath Valrea DO [Primary Care Provider, Family Practice]
[2025-02-27 16:49] VITALS: BP 135/81; PULSE 112; RESP 16; TEMP 37.5; O2SAT 99
== END 2025-02-27 16:49 | disposition home or self-care (01) ==
PROVIDERS: Emergency Provider Emergency Medicine; PCP Family Medicine
DX: B88.0 Other acariasis (principal); F17.210 Nicotine dependence, cigarettes, uncomplicated
CPT/HCPCS: 99283